=== PATIENT | male | born 1970 | race African-American/Black ===

== ENCOUNTER 2017-05-25 20:43 | Emergency (ER) | payer MEDICARE, MEDICAID ==
--- NOTE | 2017-05-25 22:15 | ER Document Report ---
ED Oral Problem - General Mode of Arrival: Ambulatory Information source: Patient TRAVEL OUTSIDE OF THE [place] IN LAST 30 DAYS: No - General Chief Complaint: Toothache Stated Complaint: MOUTH SWELLING Notes: Patient is a 46-year-old male who presents to the emergency department today with complaints of right-sided mouth pain with significant right-sided facial swelling. Patient states he believes he chipped a tooth approximately 4 months ago while eating Doritos but he has not had a problem with it until this morning. Patient states when he woke up this morning he noticed mild swelling to the right side of his face which has gotten much worse as the day progressed. Patient denies any difficulty breathing. (SHERRILL MCKINLEY) - Related Data Allergies/Adverse Reactions: cefazolin sodium [From Ancef] Allergy (Severe, Verified 05/27/17 21:33) ciprofloxacin [From Cipro] Allergy (Severe, Verified 05/27/17 21:33) erythromycin base [Erythromycin Base] Allergy (Severe, Verified 05/27/17 21:33) amphetamine sulfate [From Adderall] Allergy (Unknown, Verified 05/27/17 21:33) dextroamphetamine [From Adderall] Allergy (Unknown, Verified 05/27/17 21:33) enalapril maleate [From Vasotec] Allergy (Unknown, Verified 05/27/17 21:33) gentamicin [Gentamicin] Allergy (Unknown, Verified 05/27/17 21:33) hydromorphone HCl [From Dilaudid] Allergy (Unknown, Verified 05/27/17 21:33) vancomycin [Vancomycin] Allergy (Unknown, Verified 05/27/17 21:33) Past Medical History - General Information source: Patient - Social History Smoking Status: Unknown if Ever Smoked Frequency of alcohol use: None Drug Abuse: None Lives with: Family Family History: Reviewed & Not Pertinent Patient has suicidal ideation: No Patient has homicidal ideation: No - Medical History Medical History: Negative Surgical Hx: Negative Review of Systems - Review of Systems Constitutional: No symptoms reported EENT: See HPI, Mouth pain - with extensive facial swelling Cardiovascular: No symptoms reported Respiratory: No symptoms reported Gastrointestinal: No symptoms reported Genitourinary: No symptoms reported Male Genitourinary: No symptoms reported Musculoskeletal: No symptoms reported Skin: No symptoms reported Hematologic/Lymphatic: No symptoms reported Neurological/Psychological: No symptoms reported -: Yes All other systems reviewed and negative Physical Exam - Vital signs Vitals: Temp Pulse Resp BP Pulse Ox 99.6 F 86 20 152/110 H 97 05/25/17 20:48 05/25/17 20:48 05/25/17 20:48 05/25/17 20:48 05/25/17 20:48 - Notes Notes: Physical Exam: General: Alert, appears well. HEENT: Normocephalic. Atraumatic. PERRL. Extraocular movements intact. Oropharynx clear. Significant facial swelling on the right lower portion of face. Significant abscess formation. No trismus or stridor. Patient is able to handle secretions appropriately. Airway is patent. No submandibular swelling or uvular swelling. Neck: Supple. Non-tender. Respiratory: No respiratory distress. Clear and equal breath sounds bilaterally. Cardiovascular: Regular rate and rhythm. Abdominal: Normal Inspection. Non-tender. No distension. Normal Bowel Sounds. Back: Non-tender. No deformity or step off. Extremities: Moves all four extremities. Upper extremities: Normal inspection. Normal ROM. Lower extremities: Normal inspection. No edema. Normal ROM. Neurological: Normal cognition. AAOx4. Normal speech. Psychological: Normal affect. Normal Mood. Skin: Warm. Dry. Normal color. (SHERRILL MCKINLEY) Course - Re-evaluation Re-evalutation: 05/26/17 03:58 Patient presents emergency room with a chief complaint of toothache and facial swelling. Patient has had a long-standing history of dental decay is a dialysis patient does not have a primary care physician. He comes in with significant dental abscess and dental decay on the right lower side. Patient has no trismus stridor or drooling is afebrile denies being diabetic. He has no submandibular or uvular swelling. He has a large right-sided facial abscess the tooth in question is a lower area where there is associated periapical abscess with no active drainage. No cellulitis crepitus or necrosis. No respiratory distress or difficulty breathing. Patient is able to eat and drink and is not dehydrated. Patient is given IM clindamycin as oral medication will not be enough at this point. Also given oral Percocet. He is discharged to follow-up for recheck reevaluation and IM antibiotics in 12-24 hours. Given a list of dental physicians in the area and specifically discussed reasons for ED return sooner (ALBERT RAZA) - Vital Signs Vital signs: Temp Pulse Resp BP Pulse Ox 98.4 F 75 20 164/78 H 98 05/25/17 23:25 05/25/17 23:25 05/25/17 20:48 05/25/17 23:25 05/25/17 23:25 Discharge - Discharge Clinical Impression: Acute dental abscess Condition: Stable Disposition: HOME, SELF-CARE Instructions: Toothache ([facility]), Oral Narcotic Medication ([facility]), Clindamycin ([facility] ) Additional Instructions: Dental Infection or Abscess You have an infection, perhaps an abscess (pus formation) of the gum around one of your teeth, which is probably decayed. If there is an abscess, it may drain on its own or it may need to be opened or lanced. Severe swelling or drainage around a tooth usually means a deep dental abscess which usually requires evaluation and treatment by a dentist or oral surgeon. Antibiotics may be prescribed while awaiting dental treatment. If you develop high fever with chills, worsening pain, or increasing swelling in the area, see a dentist or oral surgeon immediately or return to the Emergency Department immediately. I have given you a shot of clindamycin and oral pain medication. I want you to recheck in the emergency department in 12-24 hours for an additional dose of IM antibiotics. We are giving you dental information to follow-up with your dental physician however they will not do anything about your infected tooth until the infection is gone. I want you to return for increasing worsening or new symptoms Prescriptions: Clindamycin HCl 150 mg PO BID #14 capsule Oxycodone HCl/Acetaminophen [Percocet 5-325 mg Tablet] 1 - 2 tab PO Q4H PRN #12 tablet PRN Reason: Referrals: TOBY DUKE, [facility] [Primary Care Provider] - (Follow-up in the emergency department for recheck reevaluation and additional IM clindamycin in 12-24 hours return for increasing worsening or new symptoms) Scribe Attestation: 05/25/17 23:13 I personally performed the services described in the documentation reviewed the documentation recorded by my scribe in my presence and it accurately and completely records my words and actions (ALBERT RAZA) Scribe Documentation - Scribe Written by Janelle:: Janelle Sevilla, 05/26/2017 0332 acting as scribe for :: Vriaj
[2017-05-25] MEDS ORDERED: OXYCODONE-ACETAMINOPHEN 5-325 MG TABLET PO ONE (23:11)
[2017-05-25] MEDS ORDERED: CLINDAMYCIN PHOSPHATE INJ 300 MG/2 ML SDV IM ONE (23:11)
[2017-05-25] MEDS ORDERED: HYDROCODONE/ACETAMINOPHEN 5-325 MG 6 TAB/DSPK PO PRN (23:14)
[2017-05-25 23:42] VITALS: BP 164/78
== END 2017-05-25 23:30 | disposition home or self-care (01) ==
LOC: ER 20:43
DX: K04.7 Periapical abscess without sinus (principal); K08.89 Other specified disorders of teeth and supporting structures; R22.0 Localized swelling, mass and lump, head
CPT/HCPCS: 99282; 96372; A9270 ×2

== ENCOUNTER 2017-05-27 21:23 | Emergency (ER) | payer MEDICARE, MEDICAID ==
[2017-05-27 21:33] VITALS: BP 217/101
[2017-05-27] MEDS ORDERED: CLINDAMYCIN HCL 150 MG CAPSULE PO ONE (22:35)
--- NOTE | 2017-05-27 22:38 | ER Document Report ---
ED General - General Chief Complaint: Abscess Recheck Stated Complaint: RECHECK Time Seen by Provider: 05/27/17 22:12 TRAVEL OUTSIDE OF THE [place] IN LAST 30 DAYS: No - HPI Patient complains to provider of: Dental infection Notes: Patient is returning for evaluation of dental infection. Patient was seen approximate 48 hours ago for swelling of the right side of his jaw. Patient states is been no improvement and no worsening patient states he is yet to establish himself with any dental care. Patient states that he received a shot of antibiotics and was given a prescription for clindamycin 1 tablet daily. Patient denies any trouble breathing denies any trouble drinking patient is talking in a normal voice no drooling maintaining his secretions. Denies fever. Patient is a hemodialysis patient states compliance with his dialysis - Related Data Allergies/Adverse Reactions: cefazolin sodium [From Ancef] Allergy (Severe, Verified 05/27/17 21:33) ciprofloxacin [From Cipro] Allergy (Severe, Verified 05/27/17 21:33) erythromycin base [Erythromycin Base] Allergy (Severe, Verified 05/27/17 21:33) amphetamine sulfate [From Adderall] Allergy (Unknown, Verified 05/27/17 21:33) dextroamphetamine [From Adderall] Allergy (Unknown, Verified 05/27/17 21:33) enalapril maleate [From Vasotec] Allergy (Unknown, Verified 05/27/17 21:33) gentamicin [Gentamicin] Allergy (Unknown, Verified 05/27/17 21:33) hydromorphone HCl [From Dilaudid] Allergy (Unknown, Verified 05/27/17 21:33) vancomycin [Vancomycin] Allergy (Unknown, Verified 05/27/17 21:33) Past Medical History - Social History Smoking Status: Unknown if Ever Smoked Family History: Reviewed & Not Pertinent Patient has suicidal ideation: No Patient has homicidal ideation: No Neurological Medical History: Denies: Hx Seizures Renal/ Medical History: Denies: Hx Peritoneal Dialysis Review of Systems - Review of Systems Constitutional: No symptoms reported EENT: Other - Dental infection Cardiovascular: No symptoms reported Respiratory: No symptoms reported Gastrointestinal: No symptoms reported Genitourinary: No symptoms reported Male Genitourinary: No symptoms reported Musculoskeletal: No symptoms reported Skin: No symptoms reported Hematologic/Lymphatic: No symptoms reported Neurological/Psychological: No symptoms reported Physical Exam - Vital signs Vitals: Temp Pulse Resp BP Pulse Ox 98.5 F 81 16 217/101 H 95 05/27/17 21:25 05/27/17 21:25 05/27/17 21:25 05/27/17 21:25 05/27/17 21:25 Interpretation: Normal - General General appearance: Appears well, Alert - HEENT Head: Normocephalic, Atraumatic Eyes: Normal Pupils: PERRL Notes: Patient with multiple dental caries patient has fracture tooth #30 with surrounding cellulitic process there is some signs of purulent drainage already around this tooth that can be expressed with tongue blade. No submandibular swelling no uvular swelling airway looks to be intact. - Respiratory Respiratory status: No respiratory distress Chest status: Nontender Breath sounds: Normal Chest palpation: Normal - Cardiovascular Rhythm: Regular Heart sounds: Normal auscultation Murmur: No - Abdominal Inspection: Normal Distension: No distension Bowel sounds: Normal Tenderness: Nontender Organomegaly: No organomegaly - Back Back: Normal, Nontender - Extremities General upper extremity: Nontender, Normal color, Normal ROM, Normal temperature. No: Normal inspection - Swelling to the right arm chronic per patient. General lower extremity: Normal inspection, Nontender, Normal color, Normal ROM , Normal temperature, Normal weight bearing. No: Jese's sign - Neurological Neuro grossly intact: Yes Cognition: Normal Orientation: AAOx4 [place] Coma Scale Eye Opening: Spontaneous [place] Coma Scale Verbal: Oriented [place] Coma Scale Motor: Obeys Commands [place] Coma Scale Total: 15 Speech: Normal Motor strength normal: LUE, RUE, LLE, RLE Sensory: Normal - Psychological Associated symptoms: Normal affect, Normal mood - Skin Skin Temperature: Warm Skin Moisture: Dry Skin Color: Normal Course - Re-evaluation Re-evalutation: 05/27/17 22:57 Patient seen for dental infection. States that he has been taking his antibiotics 1 tablet daily. Explained patient this will need to be increased to every 6. Patient was given another oral dose here in the ER. Patient was encouraged follow-up with his dialysis as scheduled also encouraged to start calling the dentist tomorrow as that he does have Medicaid. Explained to the patient that the ultimate treatment for his problem will be to see a dentist or oral surgeon. Return to the ER if develops fevers difficulty breathing difficulty swallowing - Vital Signs Vital signs: Temp Pulse Resp BP Pulse Ox 98.5 F 81 16 217/101 H 95 05/27/17 21:25 05/27/17 21:25 05/27/17 21:25 05/27/17 21:25 05/27/17 21:25 Discharge - Discharge Clinical Impression: Dental infection Condition: Good Disposition: HOME, SELF-CARE Instructions: Dental Infection or Abscess ([facility]), Dentist Additional Instructions: Please follow-up with a dentist tomorrow. I am going to change her antibiotics to 4 times a day for the next 14 days. It is very important that she see a dentist as that they will ultimately fix your problem. Return to the ER for any difficulty in breathing swallowing or high fevers. Please also continue with your dialysis schedule. Prescriptions: Clindamycin HCl [Cleocin 150 mg Capsule] 150 mg PO Q6 14 Days Referrals: TOBY DUKE FNP-C [Primary Care Provider] - Follow up in 3-5 days
== END 2017-05-27 22:53 | disposition home or self-care (01) ==
LOC: ER 21:23
DX: K04.7 Periapical abscess without sinus (principal); K02.9 Dental caries, unspecified; Z88.1 Allergy status to other antibiotic agents; Z88.8 Allergy status to other drugs, medicaments and biological substances; Z88.5 Allergy status to narcotic agent; Z99.2 Dependence on renal dialysis
CPT/HCPCS: 99283; A9270

== ENCOUNTER 2019-02-25 10:55 | Emergency (ER) | payer MEDICARE ==
[2019-02-25 11:31] VITALS: BP 161/74
--- NOTE | 2019-02-25 12:19 | ER Document Report ---
HPI - HPI Time Seen by Provider: 02/25/19 11:51 Pain Level: 1 Context: Patient is a 48-year-old dialysis patient who presents the emergency department to have his sutures removed. On February 08 he was cut by a piece of glass and had his laceration repaired here in the emergency department. He denies any fever, pain, or any other symptoms at this time. Denies any drainage from the area. - CONSTITUTIONAL Constitutional: DENIES: Fever, Chills - EENT EENT: DENIES: Sore Throat, Ear Pain - NEURO Neurology: DENIES: Headache - CARDIOVASCULAR Cardiovascular: DENIES: Chest pain - RESPIRATORY Respiratory: DENIES: Trouble Breathing, Coughing - REPRODUCTIVE Reproductive: DENIES: : - MUSCULOSKELETAL Musculoskeletal: DENIES: Extremity pain, Back Pain, Neck Pain - DERM Skin Color: Normal Skin Problems: Laceration - With [address] Past Medical History - General Information source: Patient - Social History Smoking Status: Current Every Day Smoker Family History: Reviewed & Not Pertinent - Past Medical History Cardiac Medical History: Reports: Hx Hypercholesterolemia, Hx Hypertension Neurological Medical History: Denies: Hx Seizures Renal/ Medical History: Reports: Hx End Stage Renal Disease. Denies: Hx Peritoneal Dialysis - hemodialysis MWF - Immunizations Hx Diphtheria, Pertussis, Tetanus Vaccination: Yes Vertical Provider Document - CONSTITUTIONAL Agree With Documented VS: Yes Exam Limitations: No Limitations General Appearance: No Apparent Distress - INFECTION CONTROL TRAVEL OUTSIDE OF THE [place] IN LAST 30 DAYS: No - HEENT HEENT: Atraumatic, Normocephalic, PERRLA - NECK Neck: Normal Inspection - RESPIRATORY Respiratory: No Respiratory Distress - CARDIOVASCULAR Cardiovascular: Regular Rate Pulses: Normal: Brachial Notes: Thrill felt at patient's right arm fistula - MUSCULOSKELETAL/EXTREMETIES Musculoskeletal/Extremeties: FROM - NEURO Level of Consciousness: Awake, Alert, Appropriate Motor/Sensory: No Motor Deficit, No Sensory Deficit - DERM Integumentary: Warm, Dry, No Rash, Laceration - Healing with a small separation in the middle of the laceration. Course - Re-evaluation Re-evalutation: 02/25/19 12:19 Patient's sutures were removed here in the emergency department and Steri-Strips were applied to the area, as the patient does have some and approximated area in the middle of his laceration. The area has been healing well. I do not suspect patient has an underlying abscess, or any other etiology at this time. Verbal discharge instructions were given to the patient. They verbalized understanding. They are stable for discharge. - Vital Signs Vital signs: Temp Pulse Resp BP Pulse Ox 100.0 F 84 18 161/74 H 97 02/25/19 11:30 02/25/19 11:30 02/25/19 11:30 02/25/19 11:30 02/25/19 11:30 Discharge - Discharge Clinical Impression: Visit for suture removal Condition: Stable Disposition: HOME, SELF-CARE Additional Instructions: You are seen today in the emergency department for suture removal the wound is healing well. Please use Steri-Strips to help with keeping the wound closed. Please follow-up with your primary care provider in regards to this visit. Referrals: Johnna BERNSTEIN MD [Primary Care Provider] - Follow up in 3-5 days
== END 2019-02-25 12:55 | disposition home or self-care (01) ==
LOC: ER 10:55
DX: Z48.02 Encounter for removal of sutures (principal)

== ENCOUNTER 2020-07-16 14:01 | Emergency (ER) | payer MEDICARE, MEDICAID ==
[2020-07-16 15:23] LABS: ABSOLUTE BASOPHILS # (AUTO) 0.1 10^3/uL (0.0-0.2); ABSOLUTE EOSINOPHILS # (AUTO) 0.1 10^3/uL (0.0-0.6); ABSOLUTE LYMPHOCYTES (AUTO) 0.3 10^3/uL (0.5-4.7); ABSOLUTE MONOCYTES (AUTO) 0.5 10^3/uL (0.1-1.4); ABSOLUTE NEUT (AUTO) 4.1 10^3/uL (1.7-8.2); EOSINOPHILS % (AUTO) 2.5 % (0-6); HEMATOCRIT 24.2 % (37.9-51.0); LYMPHOCYTES % (AUTO) 6.5 % (13-45); MEAN CORPUSCULAR HEMOGLOBIN 32.5 pg (27.0-33.4); MEAN CORPUSCULAR HGB CONC 33.1 g/dL (32.0-36.0); MEAN CORPUSCULAR VOLUME 98 fl (80-97); MONOCYTES % (AUTO) 9.6 % (3-13); PLATELET COUNT 145 10^3/uL (150-450); RED BLOOD COUNT 2.47 10^6/uL (4.35-5.55); RED CELL DISTRIBUTION WIDTH 18.2 % (11.5-14.0); SEGMENTED NEUTROPHILS % (AUTO) 80.4 % (42-78); TOTAL CELLS COUNTED % (AUTO) 100 %; WHITE BLOOD COUNT 5.1 10^3/uL (4.0-10.5)
[2020-07-16 15:45] LABS: ALBUMIN 3.8 g/dL (3.5-5.0); ALKALINE PHOSPHATASE 56 U/L (38-126); ANION GAP 16 (5-19); ASPARTATE AMINO TRANSFERASE 37 U/L (17-59); BILIRUBIN,DIRECT 0.8 mg/dL (0.0-0.4); BILIRUBIN,TOTAL 0.8 mg/dL (0.2-1.3); BLOOD UREA NITROGEN 61 mg/dL (7-20); CALCIUM 7.8 mg/dL (8.4-10.2); CARBON DIOXIDE 21 mmol/L (22-30); CHLORIDE 99 mmol/L (98-107); CREATINE KINASE 390 U/L (55-170); GLUCOSE 88 mg/dL (75-110); POTASSIUM 5.9 mmol/L (3.6-5.0); TOTAL PROTEIN 6.4 g/dL (6.3-8.2)
[2020-07-16 15:56] LABS: CREATINE KINASE MB 4.29 ng/mL (<4.55)
--- NOTE | 2020-07-16 15:57 | ER Document Report ---
ED General - General Chief Complaint: Chest Pain Stated Complaint: CHEST PAIN Time Seen by Provider: 07/16/20 15:21 Information source: Patient TRAVEL OUTSIDE OF THE [place] IN LAST 30 DAYS: No - HPI Notes: Patient is a 49-year-old male with a history of hypertension and hemodialysis who presents with chest pain for the past 3 weeks. Patient describes his chest pain as a heavy pressure to the substernal area that comes on with exertion and resolves with rest. Patient reports fatigue, lack of energy, abdominal bloating and diarrhea but denies shortness of breath, palpitation, nausea, vomiting, fever, and syncope. Patient reports an episode of lightheadedness earlier today . Patient receives hemodialysis 3 times a week but missed his last 2 appointments. He missed his appointment on Sunday due to a recent eviction and then attempted to attend today's session but was sent to the ED due to his chest pain. Patient is an everyday smoker and endorses smoking about 15 cigarettes a day. He denies alcohol use but does smoke marijuana. He reports a family history of CAD on his mother side. - Related Data Allergies/Adverse Reactions: cefazolin sodium [From Ancef] Allergy (Severe, Verified 02/25/19 13:02) ciprofloxacin [From Cipro] Allergy (Severe, Verified 02/25/19 13:02) erythromycin base [Erythromycin Base] Allergy (Severe, Verified 02/25/19 13:02) amphetamine sulfate [From Adderall] Allergy (Unknown, Verified 02/25/19 13:02) dextroamphetamine [From Adderall] Allergy (Unknown, Verified 02/25/19 13:02) enalapril maleate [From Vasotec] Allergy (Unknown, Verified 02/25/19 13:02) gentamicin [Gentamicin] Allergy (Unknown, Verified 02/25/19 13:02) hydromorphone HCl [From Dilaudid] Allergy (Unknown, Verified 02/25/19 13:02) vancomycin [Vancomycin] Allergy (Unknown, Verified 02/25/19 13:02) Past Medical History - General Information source: Patient - Social History Smoking Status: Current Every Day Smoker Cigarette use (# per day): Yes - 15 Frequency of alcohol use: None Drug Abuse: Marijuana Family History: CAD - mother - Past Medical History Cardiac Medical History: Reports: Hx Hypercholesterolemia, Hx Hypertension Neurological Medical History: Denies: Hx Seizures Renal/ Medical History: Reports: Hx End Stage Renal Disease. Denies: Hx Peritoneal Dialysis - hemodialysis MWF - Immunizations Hx Diphtheria, Pertussis, Tetanus Vaccination: Yes Review of Systems - Review of Systems Constitutional: No symptoms reported EENT: No symptoms reported Cardiovascular: See HPI Respiratory: No symptoms reported Gastrointestinal: See HPI Genitourinary: No symptoms reported Male Genitourinary: No symptoms reported Musculoskeletal: No symptoms reported Skin: No symptoms reported Hematologic/Lymphatic: No symptoms reported Neurological/Psychological: See HPI Physical Exam - Vital signs Vitals: Temp 98.2 F 07/16/20 14:19 Course - Re-evaluation Re-evalutation: Patient is a 49-year-old male with hypertension and chronic kidney disease who presents with chest pain that is exacerbated with activity and relieved by rest. EKG shows 1st degree AV block and T wave inversion and flattening in anterior and lateral leads. CBC shows a hemoglobin of 8.0 but this is an improvement from his hemoglobin of 7.6 on 07/05/2020. CMP shows an elevated potassium of 5.9, and elevated creatinine of 12.17. Chest XR shows enlarged cardiac silhouette with central vascular congestion and prominent interstitial opacities, likely edema. No significant effusion. Patient currently receives hemodialysis 3 times a week but missed his last 2 appointments. 07/16/20 16:00 Notified by charge nurse that patient has a troponin of 0.62. Repeat 3-hour troponin and EKG ordered. 07/16/20 18:11 Repeat EKG unchanged from previous EKG done today. 07/16/20 19:50 Repeat troponin unchanged at 0.64. 07/16/20 20:00 I consulted my attending physician, Dr. Quinteros, concerning the patient. Based on his history, presentation and Heart Score of 4, Dr. Quinteros recommends admitting the patient for further cardiac evaluation and dialysis. I discussed this plan with the patient but he states he cannot stay and will go to his dialysis tomorrow for immediate dialysis treatment. Patient is leaving against medical advice. The patient has chosen to leave the facility against medical advice. The relevant issues have been reviewed and discussed with the patient and family at the bedside. At the time of this assessment there is no indication for involuntary commitment. The patient is alert, oriented, and able to express clearly their reasoning for not wanting to remain in the emergency department for further treatment. The patient is not clinically psychotic, intoxicated, and denies and suicidal ideation. - Vital Signs Vital signs: Temp Pulse Resp BP Pulse Ox 98.2 F 18 109/55 L 94 07/16/20 14:19 07/16/20 19:00 07/16/20 19:00 07/16/20 19:00 - Laboratory Result Diagrams: 07/16/20 15:08 07/16/20 15:08 Laboratory results interpreted by me: 07/16/20 07/16/20 15:08 15:08 RBC 2.47 L Hgb 8.0 L Hct 24.2 L MCV 98 H RDW 18.2 H Plt Count 145 L Lymph % (Auto) 6.5 L Absolute Lymphs (auto) 0.3 L Seg Neutrophils % 80.4 H Sodium 136.2 L Potassium 5.9 H Carbon Dioxide 21 L BUN 61 H Creatinine 12.17 H Est GFR ( Amer) 5 L Est GFR (MDRD) Non-Af 4 L Calcium 7.8 L Direct Bilirubin 0.8 H Neonat Total Bilirubin 0.0 L Creatine Kinase 390 H - Diagnostic Test Radiology reviewed: Reports reviewed Radiology results interpreted by me: Chest X-Ray 07/16/20 15:39 IMPRESSION: Enlarged cardiac silhouette with central vascular congestion and prominent interstitial opacities, likely edema. No significant effusion. - EKG Interpretation by Me Additional EKG results interpreted by me: 07/16/20 14:05 Sinus rhythm with a rate of 54. First-degree AV block with a SC interval of 297. QTc 467. Right axis deviation. T wave inversion in anterior and lateral leads. No ST segment changes in consecutive leads. 07/16/20 18:11 Sinus rhythm with a rate of 55. First-degree AV block with a SC interval of 336. QTc 479. Right axis deviation T wave inversion and flattening seen in anterior and lateral leads. No ST segment changes in consecutive leads. Minimal change from prior EKG done today. Discharge - Discharge Clinical Impression: Hyperkalemia, Creatinine elevation Chest pain Qualifiers: Chest pain type: unspecified Qualified Code(s): R07.9 - Chest pain, unspecified Chronic kidney disease Qualifiers: Chronic kidney disease stage: on chronic dialysis Qualified Code(s): N18.6 - End stage renal disease Condition: Stable Disposition: AGAINST MEDICAL ADVICE Additional Instructions: Please go to your dialysis center tomorrow for immediate treatment. Follow up with your primary care provider for further workup for your heart and referral to cardiology.
[2020-07-16 16:00] LABS: TROPONIN I 0.062 ng/mL
--- NOTE | 2020-07-16 16:21 | RADIOLOGY REPORT (SQ) ---
EXAM DESCRIPTION: CHEST SINGLE VIEW IMAGES COMPLETED DATE/TIME: 07/16/2020 3:49 pm REASON FOR STUDY: chest pain COMPARISON: 06/26/2011 EXAM PARAMETERS: NUMBER OF VIEWS: One view. TECHNIQUE: Single frontal radiographic view of the chest acquired. RADIATION DOSE: NA LIMITATIONS: None. FINDINGS: LUNGS AND PLEURA: Diffuse bilateral interstitial hazy opacities. No focal consolidation. No pneumothorax. No significant effusion MEDIASTINUM AND HILAR STRUCTURES: No masses. Contour normal. HEART AND VASCULAR STRUCTURES: Enlarged cardiac silhouette with central vascular congestion. Vascula r calcifications. BONES: No acute findings. HARDWARE: Right IJ based catheter with tip at right atrium. Vascular stent overlies left upper arm. Vascular calcifications. OTHER: No other significant finding. IMPRESSION: Enlarged cardiac silhouette with central vascular congestion and prominent interstitial opacities, likely edema. No significant effusion. TECHNICAL DOCUMENTATION: JOB ID: [id number] 2010 [employer]- All Rights Reserved Reading location - IP/workstation name: [email or web address]
--- NOTE | 2020-07-16 17:54 | EKG REPORT ---
SEVERITY:- ABNORMAL ECG - SINUS RHYTHM FIRST DEGREE AV BLOCK RIGHT AXIS DEVIATION ABNORMAL T, PROBABLE ISCHEMIA, ANT-LAT LEADS : Confirmed by: Basilio Thomas MD 16-Jul-2020 17:53:54
[2020-07-16 19:17] VITALS: BP 109/55
--- NOTE | 2020-07-16 22:47 | EKG REPORT ---
SEVERITY:- ABNORMAL ECG - SINUS RHYTHM FIRST DEGREE AV BLOCK CONSIDER RVH W/ SECONDARY REPOL ABNORMALITY BORDERLINE PROLONGED QT INTERVAL RBBB : Confirmed by: Basilio Thomas MD 16-Jul-2020 22:46:41
== END 2020-07-16 20:32 | disposition left against medical advice (07) ==
LOC: ER 14:01
DX: E87.5 Hyperkalemia (principal); R79.89 Other specified abnormal findings of blood chemistry; R07.9 Chest pain, unspecified; F17.210 Nicotine dependence, cigarettes, uncomplicated; E78.00 Pure hypercholesterolemia, unspecified; I12.0 Hypertensive chronic kidney disease with stage 5 chronic kidney disease or end stage renal disease; N18.6 End stage renal disease; Z99.2 Dependence on renal dialysis; Z88.3 Allergy status to other anti-infective agents
CPT/HCPCS: 36415; 71045; 80053; 82550; 82553; 84484; 85025; 93005; 93010; 99285